=== PATIENT | female | born 1950 | race Caucasian/White ===

== ENCOUNTER 2025-03-12 10:43 | Emergency (ER) | payer MEDICARE, OTHER ==
[2025-03-12 11:22] VITALS: PULSE 58; TEMP 97.3; O2SAT 97
--- NOTE | 2025-03-12 11:23 | ERPHSYRPT ---
- History of Present Illness Time Seen by Provider: 03/12/25 11:23 Source: patient, family Exam Limitations: no limitations Patient Subjective Stated Complaint: pt was on a 3 step ladder and she missed the 2nd step and the ladder tipped over landing on her right calf causing pain and bruising Triage Nursing Assessment: Pt brought to the ER by her , hypertensive, rates pain as 5/10, pulses normal, skin n/w/d, denies chest pain, no difficulty breathing, right lower leg swollen and beginning to bruise, doesn't appear to be in any distress Physician History: This is a 74-year-old white female patient who arrives by private vehicle accompanied by her spouse and is a patient Dr. Lyman with complaint of right lower leg pain. Patient injured her leg this morning. She was on a 3 step ladder and missed a second step. The ladder tipped over onto her right lower leg. She now has pain in the upper leg and there is swelling to the right calf. Method of Injury: direct blow Occurred: just prior to arrival Quality: constant, aching Severity of Pain-Max: moderate Severity of Pain-Current: moderate Modifying Factors: Improves With: movement Associated Symptoms: other (Hurts to bear weight) Allergies/Adverse Reactions: codeine Allergy (Verified 03/12/25 11:23) povidone-iodine [From Betadine] Allergy (Verified 03/12/25 11:23) Hx Tetanus, Diphtheria Vaccination/Date Given: No (2011) Hx Influenza Vaccination/Date Given: No Hx Pneumococcal Vaccination/Date Given: No Travel Risk - International Travel Have you traveled outside of the country in past 3 weeks: No - Emerging Infectious Disease Are you exhibiting symptoms associated with any current EIDs: No - Review of Systems Constitutional: No Symptoms Eyes: No Symptoms Ears, Nose, & Throat: No Symptoms Respiratory: No Symptoms Cardiac: No Symptoms Abdominal/Gastrointestinal: No Symptoms Genitourinary Symptoms: No Symptoms Musculoskeletal: Injury (Upper leg pain after ladder falling onto her upper leg) Skin: No Symptoms Neurological: No Symptoms Psychological: No Symptoms Endocrine: No Symptoms Hematologic/Lymphatic: No Symptoms Immunological/Allergic: No Symptoms All Other Systems: Reviewed and Negative - Past Medical History Pertinent Past Medical History: No - Past Surgical History Past Surgical History: Yes Gastrointestinal: Appendectomy Musculoskeletal: Orthopedic Surgery Female Surgical History: Hysterectomy, Tubal Ligation Other Surgical History: broke left femur - Social History Smoking Status: Never smoker Exposure to second hand smoke: No Drug Use: none - Social Determinants of Health Will the patient participate in the screening: Yes Do you worry about a steady place to live?: No Do you have any problems with any of the following?: No known problems In the past 12 months,have you had to go without utilities?: No Transportation Issues: No Has anyone in your support network made you feel unsafe?: No Have you or anyone in your house had to go w/o enough food: No - Nursing Vital Signs Nursing Vital Signs: Initial Vital Signs Temperature 97.3 F 03/12/25 11:12 Pulse Rate 58 L 03/12/25 11:12 Blood Pressure 167/87 03/12/25 11:12 O2 Sat by Pulse Oximetry 97 03/12/25 11:12 Pain Scale Pain Intensity 5 - Physical Exam General Appearance: no apparent distress, alert, anxiety Eyes, Ears, Nose, Throat Exam: normal ENT inspection, moist mucous membranes Neck Exam: normal inspection, non-tender, supple, full range of motion Cardiovascular/Respiratory Exam: chest non-tender, no respiratory distress Gastrointestinal/Abdominal Exam: non-tender Back Exam: normal inspection, normal range of motion, No CVA tenderness, No vertebral tenderness Hips Exam: bilateral: non-tender, normal inspection, normal range of motion, no evidence of injury Legs Exam: right leg: bone tenderness (Upper fibular level and mid calf level pain), soft tissue tenderness (Mid calf level pain), swelling (Questionable mid calf level), left leg: non-tender, normal inspection, normal range of motion, no evidence of injury Knees Exam: bilateral knee: non-tender, normal inspection, normal range of motion, no evidence of injury Ankle Exam: bilateral ankle: non-tender, normal inspection, normal range of motion, no evidence of injury Foot Exam: bilateral foot: non-tender, normal inspection, normal range of motion, no evidence of injury Neuro/Tendon Exam: normal sensation, normal motor functions, normal tendon functions, responds to pain, no evidence tendon injury Mental Status Exam: alert, oriented x 3, cooperative Skin Exam: normal color, warm, dry SpO2 Interpretation: normal SpO2: 97 O2 Delivery: Room Air - Course Nursing assessment & vital signs reviewed: Yes Ordered Tests: Active Orders 24 hr Category Date Time Status Crutches STAT Care 03/12/25 12:40 Active Splint STAT Care 03/12/25 12:41 Active LOWER LEG Stat Exams 03/12/25 11:46 Completed - Progress Progress: unchanged, pain not gone completely, re-examined Progress Note: 03/12/25 12:22 My medical decision making and the assignment of the moderate complexity of this patient's medical issue is based on review of the patient's past medical history, reviewed the patient's medication list, review of the patient drug allergy list, history present illness and physical findings on examination. The workup in this patient includes x-ray of the lower leg (tibia and fibula) of the right side Differential diagnosis includes but is not limited to contusion right lower leg, subcutaneous hematoma, fracture/dislocation right lower leg 03/12/25 12:25 I provided the preliminary report of the patient's right lower leg x-ray. I see a nondisplaced fracture of the head of the fibula. The radiologist reviewed and interpreted the final x-ray report of the right lower leg. The impression reads nondisplaced fracture lateral tibial plateau and head of fibula with small hemarthrosis. 03/12/25 12:[address] Trent, orthopedic on-call. He reviewed the x-rays. He wants to see the patient tomorrow, 03/13/2025 in the orthopedic clinic here at [facility]. We are to make her nonweightbearing, placed in a knee immobilizer and will make an appointment for the orthopedic clinic. I will provide her with a prescription for pain control 03/12/25 13:08 Patient states that she can take Pierce 5/325 but cannot take codeine/Percocet Counseled pt/family regarding: diagnosis, need for follow-up, rad results Medical Desision Making - Independent Historian Additional History obtained from: Spouse - Diagnostic Testing Diagnostic test were ordered, analyzed, and reviewed by me: Yes Radiological Interpretation: Interpreted by me, Reviewed by me, Teleradiologist Report - Risk of complications Low Risk: Low risk of morbidity from additional dx testing or treatment The pt has a mod risk of morbidity or mortality based on: Need for prescription drug management - Departure Departure Disposition: Home Clinical Impression: Fracture of head of fibula, Fracture of lateral condyle of left tibia Condition: Stable Critical Care Time: No Referrals: RONAK LYMAN MD [Primary Care Provider, [facility]] - Follow up/PCP as directed Additional Instructions: Ice pack to tender area 3 times a day. Nonweightbearing. Use crutches to ambulate. Wear the knee immobilizer. Follow-up tomorrow, 03/13/2025, in the [facility] orthopedic clinic for further evaluation management. Prescriptions: Hydrocodone/APAP 5/325 [Pierce 5/325 mg] 1 each PO Q8H PRN PRN #10 tablet MDD 3 PRN Reason: Pain
--- NOTE | 2025-03-12 12:22 | XRAY ---
Indication: Fall injury. Comparison: None 2 view right lower leg demonstrates nondisplaced fractures lateral tibial plateau and head of fibula with small hemarthrosis. Elsewhere osteopenia, tiny spur patella/posterior heel, and incompletely visualized midfoot orthopedic screw.
[2025-03-12] MEDS ORDERED: NORCO 5/325 MG ONE (13:18)
[2025-03-12] MEDS: NORCO 5/325 MG PO ONE (13:25)
[2025-03-12 13:37] VITALS: BP 153/98
== END 2025-03-12 13:50 | disposition home or self-care (01) ==
LOC: ED 10:43
DX: S82.831A Other fracture of upper and lower end of right fibula, initial encounter for closed fracture (principal); S82.144A Nondisplaced bicondylar fracture of right tibia, initial encounter for closed fracture; W11.XXXA Fall on and from ladder, initial encounter; Z79.891 Long term (current) use of opiate analgesic